=== PATIENT | male | born 1930 | race Caucasian/White ===

== ENCOUNTER → 2017-07-13 | Outpatient (CLI) | payer MEDICARE ==
[~2017-07-13] MED LIST: ACET-1966 PO; AMLO-104 PO; AMLO-99 PO; ASPI-1471 PO; ASPI-757 PO; ATOR10TA65 PO; ATOR40TA24 PO; BISA-236 RC; CALC-521 PO; CALC-634 PO; CALC3.7S10 NS; DEXT1DRO15 OP; FLUD0.1T12 PO; FURO20TA19 PO; MOM PO; NYST15PO4 TP; POLY17PO25 PO; POTA-53 PO; SENN-234 PO; [UNRECOGNIZED DRUG - CODE] PO; [UNRECOGNIZED DRUG - CODE] PO
== END ==
LOC: ZZSPRING 02:01
PROVIDERS: ATTEND Family Medicine
DX: F03.90 Unspecified dementia, unspecified severity, without behavioral disturbance, psychotic disturbance, mood disturbance, and anxiety (principal); E87.1 Hypo-osmolality and hyponatremia; Z86.73 Personal history of transient ischemic attack (TIA), and cerebral infarction without residual deficits
CPT/HCPCS: 36415; 82040; 82247; 82310; 82374; 82435; 82565; 82947; 84075; 84132; 84155; 84295; 84450; 84460; 84520; 85027

== ENCOUNTER → 2017-07-21 | Outpatient (CLI) | payer MEDICARE ==
--- NOTE | 2017-07-21 16:05 | RADIOLOGY IMAGING REPORT ---
FACILITY: [facility] PATIENT NAME: David Goodman : 1930 MR: [id number] V: [id number] EXAM DATE: ORDERING PHYSICIAN: NOEL URRUTIA TECHNOLOGIST: Location: [facility] Patient: David Goodman : 1930 Visit/Account:[id number] Date of Sevice: 07/21/2017 BONE MINERAL DENSITY Additional Pertinent history: Osteoporosis screening COMPARISON STUDIES: none FINDINGS: LUMBAR SPINE: The bone mineral density (BMD) measured from L1-L4 correlates with a Z-score of 0.3 and a T-score of 0 which is normal bone mineral density as defined by the World Health Organization. The corresponding risk of fracture in the lumbar spine is not increased compared with a young adult reference populat ion. Significant degenerative changes elevate bone mineral density. HIP: Bone mineral density (BMD) measured in the left total hip correlates with a Z-score of -2.1 and a T- score of -3.3 which is osteoporosis as defined by the World Health Organization. The corresponding ri sk of fracture in the hip is increased 6-7 times compared with a young adult reference population. Bone mineral density (BMD) measured in the left femoral neck region measures 0.67 g/cm2. IMPRESSION: 1. Lumbar spine: Normal bone mineral density. Significant degenerative changes elevate bone mineral d ensity. Follow-up examination should include the left forearm instead of the lumbar spine 2. Left hip: Osteoporosis. Left femoral neck: bone mineral density is 0.67 g/cm2 FRAX WHO Fracture Risk Assessment Tool link: http://www.shashank.ac.uk/FRAX/index.jsp The next DEXA scan of this patient should include the following sites: Left hip and left forearm PLEASE NOTE: 1. The World Health Organization defines low BMD as follows: T-score Normal > -1 Osteopenia -1 to -2.5 Osteoporosis < -2.5 without fractures Established osteoporosis < -2.5 with fractures 2. In general, you may wish to consider: Diagnosis Treatment Follow-up DEXA Normal BMD Prevention 2-3 years Osteopenia Prevention/therapy 1-2 years Osteoporosis Therapy Yearly 3. Fracture risk estimated from the T-score is more accurate for vertebral fractures (often spontaneo us) than for hip fractures. Report Dictated By: Esteban Berman MD at 07/21/2017 3:59 PM Report E-Signed By: Esteban Berman MD at 07/21/2017 4:01 PM WSN:[id number]
== END ==
LOC: RAD 00:48
PROVIDERS: ATTEND Family Medicine
DX: M81.0 Age-related osteoporosis without current pathological fracture (principal)
CPT/HCPCS: 77080

== ENCOUNTER → 2017-07-27 | Outpatient (CLI) | payer MEDICARE | LOC: ZZSPRING 03:00 | PROVIDERS: ATTEND Family Medicine | DX: E87.1 Hypo-osmolality and hyponatremia (principal) | CPT/HCPCS: 36415; 82310; 82374; 82435; 82565; 82947; 84132; 84295; 84520 ==

== ENCOUNTER → 2017-08-10 | Outpatient (CLI) | payer MEDICARE | LOC: ZZSPRING 00:42 | PROVIDERS: ATTEND Family Medicine | DX: E87.1 Hypo-osmolality and hyponatremia (principal) | CPT/HCPCS: 36415; 82310; 82374; 82435; 82565; 82947; 84132; 84295; 84520 ==

== ENCOUNTER → 2017-09-28 | Outpatient (CLI) | payer MEDICARE ==
[~2017-09-28] MED LIST changes: +LISI5TAB25 PO
== END ==
LOC: ZZSPRING 00:19
PROVIDERS: ATTEND Family Medicine
DX: E87.1 Hypo-osmolality and hyponatremia (principal); I10 Essential (primary) hypertension
CPT/HCPCS: 36415; 82310; 82374; 82435; 82565; 82947; 84132; 84295; 84520

== ENCOUNTER → 2017-10-12 | Outpatient (CLI) | payer MEDICARE ==
[~2017-10-12] MED LIST changes: +MIRT7.5T2 PO
== END ==
LOC: ZZSPRING 10-11 08:21
PROVIDERS: ATTEND Family Medicine
DX: E87.1 Hypo-osmolality and hyponatremia (principal)
CPT/HCPCS: 36415; 82310; 82374; 82435; 82565; 82947; 84132; 84295; 84520

== ENCOUNTER → 2017-11-30 | Outpatient (CLI) | payer MEDICARE ==
[~2017-11-30] MED LIST changes: +SERT25TA90 PO
== END ==
LOC: ZZSPRING 00:04
PROVIDERS: ATTEND Family Medicine
DX: E87.1 Hypo-osmolality and hyponatremia (principal)
CPT/HCPCS: 36415; 82310; 82374; 82435; 82565; 82947; 84132; 84295; 84520

== ENCOUNTER → 2017-12-28 | Outpatient (CLI) | payer MEDICARE ==
[~2017-12-28] MED LIST changes: -SENN-234 PO; +SENN1TAB28 PO; +SERT-184 PO
== END ==
LOC: ZZSPRING 02:12
PROVIDERS: ATTEND Family Medicine
DX: E87.1 Hypo-osmolality and hyponatremia (principal); I10 Essential (primary) hypertension; R41.0 Disorientation, unspecified
CPT/HCPCS: 36415; 82310; 82374; 82435; 82565; 82947; 84132; 84295; 84520; 85027